=== PATIENT | male | born 1995 | race African-American/Black ===

== ENCOUNTER 2020-04-21 08:56 | Emergency (ER) | payer BC ==
[~2020-04-21] VITALS: Ht 185.4 cm; Wt 90.7 kg
[2020-04-21 09:02] VITALS: BP 152/98
== END 2020-04-21 09:40 | disposition home or self-care (01) ==
LOC: ER 08:56
DX: L50.8 Other urticaria (principal)

== ENCOUNTER 2020-09-20 19:11 | Inpatient (IN) | payer BC ==
[~2020-09-20] VITALS: Ht 185.4 cm; Wt 90.7 kg
[2020-09-20 19:16] VITALS: BP 147/88
[2020-09-20 20:18] LABS: URINE BLOOD NEGATIVE (Negative); URINE CLARITY CLEAR; URINE COLOR YELLOW; URINE GLUCOSE-RANDOM* NEGATIVE (Negative); URINE KETONES 2+ (Negative); URINE LEUKOCYTES-REFLEX NEGATIVE (Negative); URINE NITRITE-REFLEX NEGATIVE (Negative); URINE PROTEIN (DIPSTICK) NEGATIVE (Negative); URINE SPECIFIC GRAVITY >= 1.030 (1.005-1.035)
[2020-09-20 20:23] LABS: ICTOTEST (BILI CONFIRMATORY) Negative (Negative); URINE BILIRUBIN NEGATIVE (Negative)
[2020-09-20 20:54] LABS: ABSOLUTE NEUTROPHILS 6.5 thou/uL (1.4-8.2); BASOPHILS 0.5 % (0.0-2.0); HEMATOCRIT 42.1 % (42.0-52.0); HEMOGLOBIN 14.1 gm/dL (14.0-18.0); MCH 28.2 pg (26.0-34.0); MCHC 33.5 g/dL (28.0-37.0); MCV 84.1 fL (80.0-100.0); MONOCYTES 5.2 % (1.0-8.0); PLATELET COUNT 268 thou/uL (150-400); POLYS 70.3 % (36.0-66.0); RBC 5.01 mil/uL (4.50-6.00); RDW 13.6 % (10.5-14.5); WBC 9.2 thou/uL (4.0-11.0)
[2020-09-20 21:08] LABS: CALCIUM 9.3 mg/dL (8.5-10.1); CREATININE 1.2 mg/dL (0.7-1.3); POTASSIUM 3.5 mmol/L (3.5-5.1)
[2020-09-20 21:14] LABS: ALBUMIN 3.8 g/dL (3.4-5.0); TOTAL PROTEIN 8.2 g/dL (6.4-8.2)
[2020-09-20 21:42] LABS: AMP/METHAMP Negative (Negative); BARBITURATES Negative (Negative); BENZODIAZEPINES Negative (Negative); COCAINE Negative (Negative); METHADONE Negative (Negative); OPIATES Negative (Negative); PCP Negative (Negative)
[2020-09-21 07:13] VITALS: BP 147/88
--- NOTE | 2020-09-21 07:32 | NUR ---
TOOK OVER CARE FROM ESA LERNER AT THIS TIME
[2020-09-21 08:29] VITALS: BP 124/87
[2020-09-21 09:00] VITALS: BP 103/64
--- NOTE | 2020-09-21 13:31 | NUR ---
RN was notified by slabbing machine operator that patient is refusing lab test done. Patient is afraid of needles and stated that he about hit the liliana putting my IV in. Patient is alert and orinted.
[2020-09-21 16:30] VITALS: BP 117/79
--- NOTE | 2020-09-21 18:34 | NUR ---
Patient alert and orinted x4, on room air, tolerating diet well, denies any pain, vitals stable, and afbriele. Call light with in reach, will continue to monitor.
[2020-09-21 20:25] VITALS: BP 135/82
--- NOTE | 2020-09-22 03:19 | NUR ---
PT IS A/O X4 AND IS UP AD FESTUS. ROOM AIR. VSS. AFEBRILE. DENIES C/O PAIN AND DISCOMFORT. SHOWERED THIS NOC INDEPENDENTLY. MEDICATIONS GIVEN PER MAR. CALL LIGHT IS WITHIN REACH. CALLS OUT APPROPRIATELY.
[2020-09-22 05:05] VITALS: BP 140/85
[2020-09-22 06:13] LABS: HEMATOCRIT 44.8 % (42.0-52.0); HEMOGLOBIN 14.8 gm/dL (14.0-18.0); MCH 28.3 pg (26.0-34.0); MCHC 33.1 g/dL (28.0-37.0); MCV 85.5 fL (80.0-100.0); RBC 5.25 mil/uL (4.50-6.00); RDW 13.3 % (10.5-14.5); WBC 6.5 thou/uL (4.0-11.0)
[2020-09-22 07:25] VITALS: BP 143/87
[2020-09-22 12:09] LABS: HSV PCR SOURCE ABSCESS
--- NOTE | 2020-09-22 14:35 | NUR ---
patient left ama at this time. IV out. AMA paper signed.
[2020-09-23 06:06] LABS: HIV ANTIBODY Non Reactive (Non Reactive)
== END 2020-09-22 14:56 | disposition left against medical advice (07) | DRG 728 ==
LOC: ER 19:11 → 4S 21:50 → EROBS 21:50 → 4S 09-21 09:50
PROVIDERS: Nurse Practitioner Family; Physician Assistant; ADMIT Hospitalist; ATTEND Hospitalist
DX: N48.21 Abscess of corpus cavernosum and penis (principal); I10 Essential (primary) hypertension; Z53.29 Procedure and treatment not carried out because of patient's decision for other reasons; Z83.3 Family history of diabetes mellitus; Z79.899 Other long term (current) drug therapy
CPT/HCPCS: 10195